=== PATIENT | male | born 1935 | race Caucasian/White ===

== ENCOUNTER 2019-02-07 13:30 | Outpatient (CLI) | payer MEDICARE, OTHER ==
--- NOTE | 2019-02-07 16:45 | BD ---
BONE DENSITOMETRY USING DEXA: Date: 02/07/19 HISTORY: Osteoporosis. FINDINGS: Lumbar Spine: BMD (g/cm2) L1 0.711 T-Score: -3.3 L2 0.796 T-Score: -3.5 L3 0.827 T-Score: -2.5 L4 0.845 T-Score: -2.2 L1-L4 0.775 T-Score: -2.9 Femoral Neck: 0.608 T-Score: -2.4 Total Femur: 0.676 T-Score: -2.4 IMPRESSION: Osteoporosis. POS: OFF
== END 2019-02-07 13:31 | disposition home or self-care (01) ==
LOC: BICMAMMO 13:30
PROVIDERS: ATTEND Specialist
DX: M81.0 Age-related osteoporosis without current pathological fracture (principal)
CPT/HCPCS: 77080

== ENCOUNTER 2022-02-25 10:24 | Inpatient (IN) | payer MEDICARE, OTHER ==
[2022-02-25] MEDS ORDERED: Fentanyl 100 MCG/2 ML VIAL ONE (11:47)
[2022-02-25 12:19] LABS: Hemoglobin 13.2 g/dL (14.0-18.0); Mean Corpuscular Hemoglobin 32.9 pg (27.0-31.0); Mean Corpuscular Volume 99.8 fL (78.0-98.0); Mean Platelet Volume 7.6 fL (7.4-10.4); Platelet Count 169 thou/uL (130-400); RBC Distribution Width 13.5 % (11.5-14.5); Red Blood Cell (RBC) Count 4.01 mill/uL (4.70-6.10); White Blood Cell (WBC) Count 18.3 thou/uL (4.8-10.8)
[2022-02-25 12:32] LABS: PTT 25.1 sec (22.9-36.1); Prothrombin Time 13.7 sec (12.0-14.7)
[2022-02-25 12:38] LABS: ALT (SGPT) 10 U/L (8-55); AST (SGOT) 16 U/L (5-34); Albumin 3.5 g/dL (3.4-4.8); Alkaline Phosphatase 82 U/L (40-110); Anion Gap 13 mmol/L (10-20); BUN (Urea Nitrogen) 9 mg/dL (8.4-25.7); Band 9 % (5-11); Bilirubin, Total 1.1 mg/dL (0.2-1.2); Calc. Creatinine Clearance 0 mL/min (70-130); Calcium 8.8 mg/dL (7.8-10.44); Carbon Dioxide 23 mmol/L (23-31); Chloride 106 mmol/L (98-107); Globulin 2.2 g/dL (2.4-3.5); Glucose 174 mg/dL (83-110); Hypochromia SLIGHT = 6-15 cells (100X) (0-5/hpf); Lymphocytes 31 % (21-51); MDiff Complete? YES; Neutrophil 53 % (42-75); Platelet Morphology Comment Appears Adequate; Potassium 3.8 mmol/L (3.5-5.1); Protein, Total 5.7 g/dL (5.8-8.1); Reactive Lymphocytes 7 % (0-10); Sodium 138 mmol/L (136-145)
[2022-02-25] MEDS ORDERED: Ondansetron ODT 4 MG TAB PO PRN (13:37)
[2022-02-25] MEDS ORDERED: HYDROcodone/Acetaminophen 10/325 mg Tablet PO PRN (13:37)
[2022-02-25] MEDS ORDERED: traMADol HCl 50 MG TAB PO PRN ×2 (13:37)
[2022-02-25] MEDS ORDERED: hydrALAZINE 20 MG/ML VIAL SLOW IVP PRN (13:37)
[2022-02-25 16:19] VITALS: BMI 23.3
[2022-02-25] MEDS: Atorvastatin Calcium 40 MG TAB PO SCH (20:24)
[2022-02-25] MEDS: Famotidine/PF 20 mg/2ml Vial SLOW IVP SCH (20:25)
[2022-02-25] MEDS ORDERED: Mirtazapine 15 MG TAB PO SCH (21:00)
[2022-02-25] MEDS: Latanoprost 0.005% Ophth Soln 2.5 ml Bottle EA EYE SCH (21:16)
[2022-02-26 06:00] LABS: SARS-CoV-2 NAA Rapid Test Not Detected (NotDetected)
[2022-02-26 06:18] LABS: INR-International Normal Ratio 1.1; PTT 28.9 sec (22.9-36.1); Prothrombin Time 14.2 sec (12.0-14.7)
[2022-02-26 06:19] LABS: Hemoglobin 11.8 g/dL (14.0-18.0); Mean Corpuscular HGB CONC 33.7 g/dL (32.0-36.0); Mean Corpuscular Hemoglobin 33.1 pg (27.0-31.0); Mean Corpuscular Volume 98.1 fL (78.0-98.0); Mean Platelet Volume 7.5 fL (7.4-10.4); Platelet Count 160 thou/uL (130-400); RBC Distribution Width 13.4 % (11.5-14.5); Red Blood Cell (RBC) Count 3.57 mill/uL (4.70-6.10); White Blood Cell (WBC) Count 16.3 thou/uL (4.8-10.8)
[2022-02-26 06:23] LABS: Anion Gap 14 mmol/L (10-20); BUN (Urea Nitrogen) 9 mg/dL (8.4-25.7); Calc. Creatinine Clearance 47 mL/min (70-130); Carbon Dioxide 22 mmol/L (23-31); Chloride 106 mmol/L (98-107); Potassium 3.9 mmol/L (3.5-5.1); Sodium 138 mmol/L (136-145)
[2022-02-26 06:24] LABS: Glucose 169 mg/dL (83-110); Magnesium 1.9 mg/dL (1.6-2.6)
[2022-02-26 06:36] LABS: Band 4 % (5-11); Lymphocytes 34 % (21-51); MDiff Complete? YES; Monocytes 6 % (0-10); Neutrophil 54 % (42-75); Reactive Lymphocytes 2 % (0-10); Schistocytes SLIGHT = 2-5 cells (100X) (0-1/hpf)
[2022-02-26] MEDS ORDERED: fentaNYL Citrate/PF 100 MCG/2 ML SYRINGE ONE (07:10)
[2022-02-26] MEDS ORDERED: Dexmedetomidine 200 MCG/2 ML VIAL ONE (07:10)
[2022-02-26] MEDS: Metoprolol Tartrate 25 MG TAB PO SCH (07:22)
[2022-02-26] MEDS ORDERED: ceFAZolin (BATCH) 2 GM/100 ML BAG ONE (08:05)
[2022-02-26] MEDS ORDERED: Lidocaine 1% PF 5 ML VIAL ONE (08:28)
[2022-02-26] MEDS ORDERED: Ondansetron PF 4 MG/2 ML Vial ONE (08:28)
[2022-02-26] MEDS ORDERED: PROPOFOL 200 MG/20 ML VIAL ONE (08:28)
[2022-02-26] MEDS ORDERED: ePHEDrine 50 MG/ML VIAL ONE (08:28)
[2022-02-26] MEDS ORDERED: PHENYLEPHRINE-NS 100 MCG/ML 10 ML SYRINGE ONE (08:28)
[2022-02-26] MEDS ORDERED: Furosemide 20 MG TAB PO SCH (09:00)
[2022-02-26] MEDS ORDERED: Dutasteride 0.5 MG CAP PO SCH (09:00)
[2022-02-26] MEDS ORDERED: Promethazine HCl 25 MG/ML VIAL IVPB PRN (09:24)
[2022-02-26] MEDS ORDERED: Promethazine HCl 25 MG/ML VIAL IM PRN (09:24)
[2022-02-26] MEDS ORDERED: Ondansetron HCl/PF 4 MG/2 ML Vial IVP PRN (09:24)
[2022-02-26] MEDS ORDERED: Morphine 4 MG/ML VIAL SLOW IVP PRN (09:46)
[2022-02-26] MEDS ORDERED: Morphine 2 MG/ML VIAL SLOW IVP PRN ×2 (09:46→19:13)
[2022-02-26] MEDS ORDERED: Ondansetron PF 4 MG/2 ML Vial IVP PRN (09:46)
[2022-02-26] MEDS ORDERED: HYDROcodone/Acetaminophen 5/325 mg Tablet PO PRN ×2 (09:46)
[2022-02-26] MEDS ORDERED: PHARMACY TO RENALLY ADJUST ABX FS SCH (10:00)
[2022-02-26] MEDS ORDERED: TETANUS AND DIPHTHERIA TOX/PF 0.5 ML DISP.SYRIN IM SCH (10:00)
[2022-02-26] MEDS: Ferrous Sulfate 325 MG TAB PO SCH (14:47)
[2022-02-26] MEDS: Famotidine/PF 20 mg/2ml Vial SLOW IVP SCH ×2 (14:47→20:33)
[2022-02-26] MEDS: Tamsulosin HCl 0.4 MG CAP PO SCH (14:49)
[2022-02-26] MEDS: Oxybutynin 5 MG TAB PO SCH (14:49)
[2022-02-26] MEDS: ceFAZolin (BATCH) 2 GM in Premix Bag 1 BAG IVPB SCH ×2 (15:12→23:22)
[2022-02-26] MEDS ORDERED: Dextrose 5% in Water 1,000 ML IV PRN (19:14)
[2022-02-26] MEDS ORDERED: Dextrose 50% Abboject 50 ML SYRINGE SLOW IVP PRN (19:14)
[2022-02-26] MEDS ORDERED: Insulin Regular 300 UNITS/3 ML VIAL SC PRN (19:14)
[2022-02-26] MEDS: Aspirin 81 mg Enteric Coated Tablet PO SCH (20:32)
[2022-02-26] MEDS: Atorvastatin Calcium 40 MG TAB PO SCH (20:32)
[2022-02-26] MEDS: Latanoprost 0.005% Ophth Soln 2.5 ml Bottle EA EYE SCH (20:33)
[2022-02-26] MEDS: Acetaminophen 500 MG TAB PO SCH (23:22)
[2022-02-27] MEDS: Acetaminophen 500 MG TAB PO SCH ×4 (05:46→23:32)
[2022-02-27] MEDS: Insulin Regular 300 UNITS/3 ML VIAL SC PRN ×3 (05:47→18:52)
[2022-02-27 06:39] LABS: Anion Gap 12 mmol/L (10-20); BUN (Urea Nitrogen) 15 mg/dL (8.4-25.7); Calc. Creatinine Clearance 36 mL/min (70-130); Calcium 8.3 mg/dL (7.8-10.44); Carbon Dioxide 22 mmol/L (23-31); Chloride 108 mmol/L (98-107); Glucose 211 mg/dL (83-110); Magnesium 1.9 mg/dL (1.6-2.6); Phosphorus 3.1 mg/dL (2.3-4.7); Potassium 4.1 mmol/L (3.5-5.1); Sodium 138 mmol/L (136-145)
[2022-02-27 06:40] LABS: #Basophils 0.1 thou/uL (0.0-0.2); #Eosinphils 0.1 thou/uL (0.0-0.7); #Lymphocytes 5.6 thou/uL (1.20-3.40); #Monocytes 1.1 thou/uL (0.11-0.59); #Neutrophils 7.3 thou/uL (1.40-6.50); %Basophils 0.5 % (0.0-1.0); %Eosinophils 0.9 % (0.0-10.0); %Lymphocytes 39.6 % (21.0-51.0); %Monocytes 7.7 % (0.0-10.0); %Neutrophils 51.3 % (42.0-75.0); Hemoglobin 9.9 g/dL (14.0-18.0); Mean Corpuscular HGB CONC 34.5 g/dL (32.0-36.0); Mean Corpuscular Hemoglobin 34.5 pg (27.0-31.0); Mean Platelet Volume 8.2 fL (7.4-10.4); Platelet Count 131 thou/uL (130-400); RBC Distribution Width 13.5 % (11.5-14.5); Red Blood Cell (RBC) Count 2.88 mill/uL (4.70-6.10); White Blood Cell (WBC) Count 14.2 thou/uL (4.8-10.8)
[2022-02-27] MEDS ORDERED: traMADol HCl 50 MG TAB PO PRN (07:12)
[2022-02-27] MEDS ORDERED: Cyclobenzaprine 10 MG TAB PO PRN (07:13)
[2022-02-27] MEDS ORDERED: Sodium Chloride 0.9% 1,000 ML IV SCH (07:15)
[2022-02-27] MEDS: ceFAZolin (BATCH) 2 GM in Premix Bag 1 BAG IVPB SCH ×2 (08:36→17:49)
[2022-02-27] MEDS ORDERED: Enoxaparin Sodium 40 MG/0.4 ML SYRINGE SC SCH (09:00)
[2022-02-27] MEDS ORDERED: Famotidine/PF 20 mg/2ml Vial SLOW IVP SCH (09:00)
[2022-02-27] MEDS: Metoprolol Tartrate 25 MG TAB PO SCH (09:10)
[2022-02-27] MEDS: Aspirin 81 mg Enteric Coated Tablet PO SCH ×2 (09:10→20:23)
[2022-02-27] MEDS: Tamsulosin HCl 0.4 MG CAP PO SCH (09:10)
[2022-02-27] MEDS: Ferrous Sulfate 325 MG TAB PO SCH (09:10)
[2022-02-27] MEDS: Oxybutynin 5 MG TAB PO SCH (09:10)
[2022-02-27] MEDS ORDERED: traMADol HCl 50 MG TAB PO SCH (12:00)
[2022-02-27] MEDS ORDERED: Ibuprofen 200 MG TAB PO SCH (14:00)
[2022-02-27] MEDS: traMADol HCl 50 MG TAB PO SCH ×2 (17:41→20:23)
[2022-02-27] MEDS ORDERED: Digoxin 0.25 MG TAB PO SCH (20:15)
[2022-02-27] MEDS: Atorvastatin Calcium 10 MG TAB PO SCH (20:23)
[2022-02-27] MEDS: Latanoprost 0.005% Ophth Soln 2.5 ml Bottle EA EYE SCH (20:23)
[2022-02-27 20:44] LABS: Hemoglobin 9.2 g/dL (14.0-18.0); Mean Corpuscular HGB CONC 33.3 g/dL (32.0-36.0); Mean Corpuscular Hemoglobin 33.1 pg (27.0-31.0); Mean Corpuscular Volume 99.5 fL (78.0-98.0); Mean Platelet Volume 7.8 fL (7.4-10.4); Platelet Count 126 thou/uL (130-400); RBC Distribution Width 13.6 % (11.5-14.5); Red Blood Cell (RBC) Count 2.78 mill/uL (4.70-6.10); White Blood Cell (WBC) Count 11.8 thou/uL (4.8-10.8)
[2022-02-27] MEDS ORDERED: Digoxin 0.5 MG/2 ML AMP SLOW IVP SCH ×2 (20:45→21:00)
[2022-02-27 21:01] LABS: #Eosinphils 0.2 thou/uL (0.0-0.7); #Lymphocytes 4.1 thou/uL (1.20-3.40); #Monocytes 0.7 thou/uL (0.11-0.59); #Neutrophils 6.8 thou/uL (1.40-6.50); %Basophils 0.2 % (0.0-1.0); %Eosinophils 1.7 % (0.0-10.0); %Lymphocytes 34.5 % (21.0-51.0); %Monocytes 5.9 % (0.0-10.0); %Neutrophils 57.8 % (42.0-75.0); MDiff Complete? YES
[2022-02-27 21:02] LABS: Anion Gap 12 mmol/L (10-20); BUN (Urea Nitrogen) 18 mg/dL (8.4-25.7); Calc. Creatinine Clearance 39 mL/min (70-130); Calcium 8.2 mg/dL (7.8-10.44); Carbon Dioxide 21 mmol/L (23-31); Chloride 110 mmol/L (98-107); Glucose 186 mg/dL (83-110); Magnesium 1.9 mg/dL (1.6-2.6); Phosphorus 2.5 mg/dL (2.3-4.7); Sodium 139 mmol/L (136-145)
[2022-02-27] MEDS ORDERED: Hydrocortisone Sod Succ/PF 100 mg/2 ml Vial IVP SCH (22:15)
[2022-02-28] MEDS: Hydrocortisone Sod Succ/PF 100 mg/2 ml Vial IVP SCH ×3 (01:55→18:04)
[2022-02-28] MEDS ORDERED: Digoxin 0.5 MG/2 ML AMP SLOW IVP SCH ×3 (03:00→09:00)
[2022-02-28 04:19] LABS: #Lymphocytes 4.5 thou/uL (1.20-3.40); #Monocytes 0.3 thou/uL (0.11-0.59); #Neutrophils 7.1 thou/uL (1.40-6.50); %Eosinophils 0.2 % (0.0-10.0); %Lymphocytes 37.9 % (21.0-51.0); %Monocytes 2.7 % (0.0-10.0); %Neutrophils 59.2 % (42.0-75.0); Hemoglobin 8.4 g/dL (14.0-18.0); Mean Corpuscular HGB CONC 32.7 g/dL (32.0-36.0); Mean Platelet Volume 7.9 fL (7.4-10.4); Platelet Count 112 thou/uL (130-400); RBC Distribution Width 13.4 % (11.5-14.5); Red Blood Cell (RBC) Count 2.56 mill/uL (4.70-6.10); White Blood Cell (WBC) Count 11.9 thou/uL (4.8-10.8)
[2022-02-28 04:29] LABS: Anion Gap 12 mmol/L (10-20); BUN (Urea Nitrogen) 20 mg/dL (8.4-25.7); Calc. Creatinine Clearance 39 mL/min (70-130); Calcium 8.4 mg/dL (7.8-10.44); Carbon Dioxide 22 mmol/L (23-31); Chloride 110 mmol/L (98-107); Glucose 196 mg/dL (83-110); Magnesium 2.1 mg/dL (1.6-2.6); Phosphorus 2.9 mg/dL (2.3-4.7); Potassium 4.9 mmol/L (3.5-5.1); Sodium 139 mmol/L (136-145)
[2022-02-28] MEDS: traMADol HCl 50 MG TAB PO SCH ×3 (05:58→22:17)
[2022-02-28] MEDS: Insulin Regular 300 UNITS/3 ML VIAL SC PRN (06:00)
[2022-02-28] MEDS: Acetaminophen 500 MG TAB PO SCH ×3 (06:00→18:03)
[2022-02-28] MEDS: Aspirin 81 mg Enteric Coated Tablet PO SCH ×2 (09:46→20:38)
[2022-02-28] MEDS: Tamsulosin HCl 0.4 MG CAP PO SCH (09:46)
[2022-02-28] MEDS: Alogliptin 6.25 MG TAB PO SCH (09:46)
[2022-02-28] MEDS: Docusate Sodium 100 MG/10 ML UDCUP PO SCH (09:46)
[2022-02-28] MEDS: Oxybutynin 5 MG TAB PO SCH (09:47)
[2022-02-28] MEDS: Ferrous Sulfate 325 MG TAB PO SCH (09:47)
[2022-02-28] MEDS: Empagliflozin 25 MG TAB PO SCH (09:47)
[2022-02-28] MEDS: Latanoprost 0.005% Ophth Soln 2.5 ml Bottle EA EYE SCH (20:37)
[2022-02-28] MEDS: Atorvastatin Calcium 10 MG TAB PO SCH (20:38)
[2022-02-28] MEDS ORDERED: Insulin Glargine 30 UNITS/0.3 ML VIAL SC SCH (21:00)
[2022-03-01] MEDS: Acetaminophen 500 MG TAB PO SCH ×2 (01:07→05:22)
[2022-03-01] MEDS: traMADol HCl 50 MG TAB PO SCH (05:21)
[2022-03-01 05:33] LABS: Hemoglobin 7.8 g/dL (14.0-18.0); Mean Corpuscular HGB CONC 32.2 g/dL (32.0-36.0); Mean Corpuscular Hemoglobin 32.7 pg (27.0-31.0); Mean Platelet Volume 8.2 fL (7.4-10.4); Platelet Count 138 thou/uL (130-400); RBC Distribution Width 13.4 % (11.5-14.5); Red Blood Cell (RBC) Count 2.39 mill/uL (4.70-6.10); White Blood Cell (WBC) Count 10.2 thou/uL (4.8-10.8)
[2022-03-01 05:34] LABS: Band 9 % (5-11); Lymphocytes 33 % (21-51); MDiff Complete? YES; Monocytes 8 % (0-10); Neutrophil 50 % (42-75)
[2022-03-01] MEDS ORDERED: Ferrous Sulfate 325 MG TAB PO SCH (08:00)
[2022-03-01] MEDS ORDERED: Insulin Glargine 30 UNITS/0.3 ML VIAL SC SCH (09:00)
[2022-03-01] MEDS ORDERED: Ascorbic Acid 500 mg Chewable Tablet PO SCH (09:00)
[2022-03-01] MEDS: Docusate Sodium 100 MG/10 ML UDCUP PO SCH (09:54)
[2022-03-01] MEDS: Alogliptin 6.25 MG TAB PO SCH (09:56)
[2022-03-01] MEDS: Empagliflozin 25 MG TAB PO SCH (09:57)
[2022-03-01] MEDS: Tamsulosin HCl 0.4 MG CAP PO SCH (09:57)
[2022-03-01] MEDS: Oxybutynin 5 MG TAB PO SCH (09:57)
[2022-03-01] MEDS: Aspirin 81 mg Enteric Coated Tablet PO SCH (09:58)
[2022-03-01 10:57] VITALS: BP 147/67
[2022-03-01 10:59] VITALS: TEMP 98.6
== END 2022-03-01 11:16 | DRG 481 ==
LOC: ERS 10:24 → SURG B 12:14 → 2NO 02-27 21:21
PROVIDERS: ADMIT Student in an Organized Health Care Education/Training Program; ATTEND Surgery
PROC: 0QS704Z Reposition Left Upper Femur with Internal Fixation Device, Open Approach (ICD-10-PCS; principal; 2022-02-26)
DX: S72.142A Displaced intertrochanteric fracture of left femur, initial encounter for closed fracture (principal); N17.9 Acute kidney failure, unspecified; Z20.822 Contact with and (suspected) exposure to COVID-19; G30.9 Alzheimer's disease, unspecified; F02.80 Dementia in other diseases classified elsewhere, unspecified severity, without behavioral disturbance, psychotic disturbance, mood disturbance, and anxiety; E78.5 Hyperlipidemia, unspecified; E78.00 Pure hypercholesterolemia, unspecified; I10 Essential (primary) hypertension; W18.30XA Fall on same level, unspecified, initial encounter; I25.10 Atherosclerotic heart disease of native coronary artery without angina pectoris; I48.91 Unspecified atrial fibrillation; Z95.1 Presence of aortocoronary bypass graft; Z98.890 Other specified postprocedural states; Z79.899 Other long term (current) drug therapy
CPT/HCPCS: 36415; 36416; 70450; 71045; 72100; 72125; 72131; 72170; 76000; 80048; 80053; 82533; 83735; 83880; 84100; 85025; 85610; 85730; 86850; 86900; 86901; 93005; 93010; 93306; 96374; C1713; J0690; J1160; J1720; J1815; J2405; J2704; J3010; J3490; J7050; P9045; S0028; U0002; U0003; U0005

== ENCOUNTER 2022-03-06 21:42 | Inpatient (IN) | payer MEDICARE, OTHER ==
[~2022-03-06 21:42] MED LIST: Iopamidol 370 76% 100 ML VIAL ONE
[2022-03-06] MEDS ORDERED: Ketamine 50 MG/ML (10ML VIAL) ONE (21:49)
[2022-03-06] MEDS ORDERED: Rocuronium Bromide 10 MG/ML (10ML VIAL) ONE (21:52)
[2022-03-06 22:16] LABS: Actual Bicarbonate (HCO3a) 16.2 mEq/L (22-28); Analyzer IN Cardio ER; Base Excess (BEa) -9.5 mEq/L (-2.0 to +3.0); CO2 Tension 34.1 mmHg (35.0-45.0); Calcium, Ionized (arterial) 1.17 mmol/L (1.12-1.30); Carboxyhemoglobin (COHb) 0.3 gm% (0.0-3.0); Hemoglobin (Hb) 7.5 g/dL (14.0-18.0); pH, Arterial 7.29 (7.35-7.45)
[2022-03-06 22:20] LABS: Puncture Site RRA
[2022-03-06 22:29] LABS: Hemoglobin 10.8 g/dL (14.0-18.0); Mean Corpuscular HGB CONC 32.4 g/dL (32.0-36.0); Mean Corpuscular Hemoglobin 32.9 pg (27.0-31.0); Mean Platelet Volume 7.2 fL (7.4-10.4); Platelet Count 371 thou/uL (130-400); RBC Distribution Width 15.3 % (11.5-14.5); Red Blood Cell (RBC) Count 3.27 mill/uL (4.70-6.10); White Blood Cell (WBC) Count 58.7 thou/uL (4.8-10.8)
[2022-03-06 22:32] LABS: ALT (SGPT) 40 U/L (8-55); AST (SGOT) 39 U/L (5-34); Albumin 3.5 g/dL (3.4-4.8); Alkaline Phosphatase 100 U/L (40-110); Anion Gap 20 mmol/L (10-20); BUN (Urea Nitrogen) 35 mg/dL (8.4-25.7); Bilirubin, Total 2.4 mg/dL (0.2-1.2); Calc. Creatinine Clearance 0 mL/min (70-130); Carbon Dioxide 18 mmol/L (23-31); Chloride 116 mmol/L (98-107); Globulin 2.3 g/dL (2.4-3.5); Glucose 187 mg/dL (83-110); Potassium 3.3 mmol/L (3.5-5.1); Protein, Total 5.8 g/dL (5.8-8.1); Sodium 151 mmol/L (136-145)
[2022-03-06 22:37] LABS: Band 10 % (5-11); Eosinophils 1 % (0-10); Lymphocytes 59 % (21-51); MDiff Complete? YES; Macrocytosis MODERATE=16-30 cells (100X) (0-5/hpf); Monocytes 8 % (0-10); Neutrophil 22 % (42-75); Ovalocytes SLIGHT = 2-5 cells (100X) (0-1/hpf); Platelet Morphology Comment Appears Adequate
[2022-03-06 22:54] LABS: CKMB 1.6 ng/mL (0-6.6)
[2022-03-06] MEDS ORDERED: Azithromycin 500 MG VIAL ONE (22:57)
[2022-03-06] MEDS ORDERED: cefTRIAXone\\ROCEPHIN 1 GM VIAL ONE (22:57)
[2022-03-06 23:30] LABS: INR-International Normal Ratio 1.2; Prothrombin Time 15.2 sec (12.0-14.7)
[2022-03-06 23:44] LABS: PTT 22.6 sec (22.9-36.1)
[2022-03-07 00:24] LABS: SARS-CoV-2 NAA Rapid Test Not Detected (NotDetected)
[2022-03-07] MEDS ORDERED: DISCONTINUE PREVIOUS NARCOTIC PAIN MEDICATIONS AND BENZODIAZEPINES FS SCH (01:45)
[2022-03-07] MEDS ORDERED: Propofol 1,000 MG/100 ML VIAL IV PRN (01:45)
[2022-03-07] MEDS ORDERED: Fentanyl BOLUS 250 ML IVPB PRN (01:45)
[2022-03-07] MEDS ORDERED: Lorazepam 2 MG/ML VIAL SLOW IVP PRN (01:45)
[2022-03-07] MEDS ORDERED: Morphine 2 MG/ML VIAL SLOW IVP PRN (01:45)
[2022-03-07] MEDS ORDERED: fentaNYL Citrate/PF 2,000 MCG in Sodium Chloride 0.9% 60 ML IV SCH (01:45)
[2022-03-07] MEDS ORDERED: Propofol BOLUS 1,000 MG/100 ML VIAL IV PRN (01:45)
[2022-03-07] MEDS ORDERED: Electrolyte Replacement Protocol FS PRN (02:00)
[2022-03-07] MEDS ORDERED: Dextrose 5% in Water 1,000 ML IV PRN (02:00)
[2022-03-07] MEDS ORDERED: Dextrose 50% Abboject 50 ML SYRINGE IVP PRN (02:00)
[2022-03-07] MEDS ORDERED: Diltiazem HCl 125 MG, Admixture Fee 1 EACH in Sodium Chloride 0.9% 100 ML IVPB SCH (02:00)
[2022-03-07] MEDS ORDERED: fentaNYL Citrate-0.9 % NaCl/PF 100 ML IVPB SCH (02:00)
[2022-03-07] MEDS: Potassium Chloride 20 MEQ in Premix Bag 1 BAG IVPB SCH ×4 (02:30→08:57)
[2022-03-07 04:03] LABS: Anion Gap 17 mmol/L (10-20); BUN (Urea Nitrogen) 28 mg/dL (8.4-25.7); Calc. Creatinine Clearance 52 mL/min (70-130); Calcium 7.9 mg/dL (7.8-10.44); Carbon Dioxide 15 mmol/L (23-31); Chloride 123 mmol/L (98-107); Glucose 168 mg/dL (83-110); Potassium 3.5 mmol/L (3.5-5.1); Sodium 151 mmol/L (136-145)
[2022-03-07 04:09] LABS: Hemoglobin 8.5 g/dL (14.0-18.0); Mean Corpuscular HGB CONC 32.2 g/dL (32.0-36.0); Mean Corpuscular Hemoglobin 33.3 pg (27.0-31.0); Platelet Count 287 thou/uL (130-400); RBC Distribution Width 15.2 % (11.5-14.5); Red Blood Cell (RBC) Count 2.54 mill/uL (4.70-6.10); White Blood Cell (WBC) Count 39.8 thou/uL (4.8-10.8)
[2022-03-07 04:10] LABS: Anisocytosis SLIGHT = 6-15 cells (100X) (0-5/hpf); Band 5 % (5-11); Elliptocytes SLIGHT = 2-5 cells (100X) (0-1/hpf); Lymphocytes 68 % (21-51); MDiff Complete? YES; Macrocytosis MODERATE=16-30 cells (100X) (0-5/hpf); Monocytes 6 % (0-10); Neutrophil 21 % (42-75); Platelet Morphology Comment Appears Adequate
[2022-03-07] MEDS: Insulin Regular 300 UNITS/3 ML VIAL SC PRN ×3 (05:35→15:40)
[2022-03-07 05:41] LABS: Bilirubin Negative (Negative); Blood, Urine Negative (Negative); Clarity Clear (Clear); Glucose, Urine (Dipstick) Greater than 1000 mg/dL (Negative); Ketone, Urine 60 mg/dL (Negative); Leukocyte Negative Leu/uL (Negative); Nitrite Negative (Negative); Protein, Urine (Dipstick) 30 mg/dL (Neg-Trace); RBC/HPF 0-3 HPF (0-3); Specific Gravity, Urine 1.049 (1.002-1.036); Squamous Epithelial 0-3 HPF (0-3); Urobilinogen Normal mg/dL (Less than 2); WBC/HPF 0-3 HPF (0-3)
[2022-03-07 05:55] LABS: Bacteria/HPF Rare-Few HPF (None Seen)
[2022-03-07 08:01] LABS: Actual Bicarbonate (HCO3a) 16.4 mEq/L (22-28); Base Excess (BEa) -6.8 mEq/L (-2.0 to +3.0); Calcium, Ionized (arterial) 1.23 mmol/L (1.12-1.30); Hemoglobin (Hb) 9.5 g/dL (14.0-18.0); O2 Tension (PaO2), arterial 66.8 mmHg (> 60.0); Potassium - ABG Lab 3.52 mmol/L (3.70-5.30); pH, Arterial 7.43 (7.35-7.45)
[2022-03-07 08:12] LABS: CO2 Tension 25.4 mmHg (35.0-45.0); Puncture Site RRA
[2022-03-07] MEDS: Aspirin 300 MG Suppository PR SCH (08:57)
[2022-03-07] MEDS: Pantoprazole 40 MG VIAL IVP SCH (08:57)
[2022-03-07] MEDS ORDERED: Fentanyl 100 MCG/2 ML VIAL ONE (11:18)
[2022-03-07] MEDS ORDERED: PROPOFOL 20 ML ONE (11:19)
[2022-03-07] MEDS ORDERED: Xylocaine 1% w/ Epi 1:100K 10 ML VIAL ONE (11:19)
[2022-03-07] MEDS ORDERED: Enoxaparin Sodium 80 MG/0.8 ML SYRINGE SC SCH (11:30)
[2022-03-07] MEDS ORDERED: PROPOFOL 200 MG/20 ML VIAL IV SCH (12:30)
[2022-03-07] MEDS ORDERED: Lidocaine 1%/Epinephrine 1:100K 10 ML VIAL FS SCH (12:30)
[2022-03-07] MEDS ORDERED: Fentanyl 100 MCG/2 ML VIAL SLOW IVP SCH (12:30)
[2022-03-07] MEDS ORDERED: Lidocaine 1% w/Epinephrine 1:100K 20 ML VIAL FS SCH (12:30)
[2022-03-07] MEDS: Latanoprost 0.005% Ophth Soln 2.5 ml Bottle EA EYE SCH (21:08)
[2022-03-07] MEDS: Enoxaparin Sodium 80 MG/0.8 ML SYRINGE SC SCH (21:08)
[2022-03-07] MEDS: cefTRIAXone\\ROCEPHIN 1 GM in Sodium Chloride 0.9% 100 ML IVPB SCH (23:10)
[2022-03-07] MEDS: Azithromycin 500 MG in Sodium Chloride 0.9% 250 ML 250 ML IVPB SCH (23:10)
[2022-03-08 04:25] LABS: Anion Gap 8 mmol/L (10-20); BUN (Urea Nitrogen) 25 mg/dL (8.4-25.7); Calc. Creatinine Clearance 53 mL/min (70-130); Calcium 8.1 mg/dL (7.8-10.44); Carbon Dioxide 22 mmol/L (23-31); Glucose 181 mg/dL (83-110); Potassium 3.7 mmol/L (3.5-5.1); Sodium 153 mmol/L (136-145)
[2022-03-08 04:27] LABS: Band 16 % (5-11); Hemoglobin 7.6 g/dL (14.0-18.0); Hypochromia SLIGHT = 6-15 cells (100X) (0-5/hpf); Lymphocytes 43 % (21-51); MDiff Complete? YES; Mean Corpuscular HGB CONC 31.6 g/dL (32.0-36.0); Mean Corpuscular Hemoglobin 32.6 pg (27.0-31.0); Mean Platelet Volume 7.1 fL (7.4-10.4); Neutrophil 41 % (42-75); Platelet Count 262 thou/uL (130-400); Platelet Morphology Comment Appears Adequate; RBC Distribution Width 15.1 % (11.5-14.5); Red Blood Cell (RBC) Count 2.32 mill/uL (4.70-6.10); White Blood Cell (WBC) Count 31.4 thou/uL (4.8-10.8)
[2022-03-08 04:38] LABS: Chloride 127 mmol/L (98-107)
[2022-03-08] MEDS: Insulin Regular 300 UNITS/3 ML VIAL SC PRN ×2 (06:20→16:15)
[2022-03-08] MEDS: Enoxaparin Sodium 80 MG/0.8 ML SYRINGE SC SCH ×2 (08:36→20:38)
[2022-03-08] MEDS: Aspirin 300 MG Suppository PR SCH (08:36)
[2022-03-08] MEDS: Pantoprazole 40 MG VIAL IVP SCH (08:36)
[2022-03-08] MEDS ORDERED: Dextrose 5% in Water 500 ML IV SCH (09:45)
[2022-03-08] MEDS ORDERED: Dexamethasone 10 MG/ML VIAL SLOW IVP SCH (10:15)
[2022-03-08] MEDS: Latanoprost 0.005% Ophth Soln 2.5 ml Bottle EA EYE SCH (20:37)
[2022-03-08] MEDS: cefTRIAXone\\ROCEPHIN 1 GM in Sodium Chloride 0.9% 100 ML IVPB SCH (22:18)
[2022-03-09] MEDS: Azithromycin 500 MG in Sodium Chloride 0.9% 250 ML 250 ML IVPB SCH (01:18)
[2022-03-09] MEDS ORDERED: Dextrose 5% in Water 500 ML IV SCH ×2 (08:15→08:30)
[2022-03-09] MEDS: Pantoprazole 40 MG VIAL IVP SCH (08:27)
[2022-03-09] MEDS: Enoxaparin Sodium 80 MG/0.8 ML SYRINGE SC SCH (08:27)
[2022-03-09] MEDS ORDERED: Aspirin 81 mg Enteric Coated Tablet PER TUBE SCH (09:00)
[2022-03-09 10:28] VITALS: BMI 23.9
[2022-03-09 11:49] VITALS: BP 148/94
[2022-03-09 12:19] VITALS: TEMP 98
== END 2022-03-09 13:50 | disposition hospice, home (50) | DRG 871 ==
LOC: ERS 21:42 → CCU 23:03
PROVIDERS: ADMIT Specialist; ATTEND Specialist
PROC: 5A09357 Assistance with Respiratory Ventilation, Less than 24 Consecutive Hours, Continuous Positive Airway Pressure (ICD-10-PCS; principal; 2022-03-06)
PROC: 0BH17EZ Insertion of Endotracheal Airway into Trachea, Via Natural or Artificial Opening (ICD-10-PCS; 2022-03-06)
PROC: 5A1945Z Respiratory Ventilation, 24-96 Consecutive Hours (ICD-10-PCS; 2022-03-06)
PROC: 0D9770Z Drainage of Stomach, Pylorus with Drainage Device, Via Natural or Artificial Opening (ICD-10-PCS; 2022-03-06)
PROC: 02HV33Z Insertion of Infusion Device into Superior Vena Cava, Percutaneous Approach (ICD-10-PCS; 2022-03-06)
PROC: 3E04329 Introduction of Other Anti-infective into Central Vein, Percutaneous Approach (ICD-10-PCS; 2022-03-06)
PROC: 0BC38ZZ Extirpation of Matter from Right Main Bronchus, Via Natural or Artificial Opening Endoscopic (ICD-10-PCS; 2022-03-07)
PROC: 0BC58ZZ Extirpation of Matter from Right Middle Lobe Bronchus, Via Natural or Artificial Opening Endoscopic (ICD-10-PCS; 2022-03-07)
DX: A41.9 Sepsis, unspecified organism (principal); J18.9 Pneumonia, unspecified organism; J96.01 Acute respiratory failure with hypoxia; I26.99 Other pulmonary embolism without acute cor pulmonale; J98.11 Atelectasis; J90 Pleural effusion, not elsewhere classified; E87.0 Hyperosmolality and hypernatremia; Z66 Do not resuscitate; Z20.822 Contact with and (suspected) exposure to COVID-19; Z51.5 Encounter for palliative care; I48.91 Unspecified atrial fibrillation; K21.9 Gastro-esophageal reflux disease without esophagitis; N40.0 Benign prostatic hyperplasia without lower urinary tract symptoms; E11.9 Type 2 diabetes mellitus without complications; R29.6 Repeated falls; E86.0 Dehydration; G30.9 Alzheimer's disease, unspecified; K80.80 Other cholelithiasis without obstruction; F02.80 Dementia in other diseases classified elsewhere, unspecified severity, without behavioral disturbance, psychotic disturbance, mood disturbance, and anxiety; T17.990A Other foreign object in respiratory tract, part unspecified in causing asphyxiation, initial encounter; E78.5 Hyperlipidemia, unspecified; I50.9 Heart failure, unspecified; I11.0 Hypertensive heart disease with heart failure; E87.8 Other disorders of electrolyte and fluid balance, not elsewhere classified; Z95.1 Presence of aortocoronary bypass graft; Z87.820 Personal history of traumatic brain injury; Z78.1 Physical restraint status
CPT/HCPCS: 31500; 31624; 36415; 36416; 36556; 36600; 51702; 71045; 71275; 80048; 80053; 81001; 82553; 82607; 82746; 82805; 83605; 83880; 84484; 85025; 85610; 85730; 87040; 87070; 87086; 87205; 93005; 94002; 94003; 94760; 96365; 96366; 96367; 99292; C9113; J0456; J0696; J1100; J1650; J1815; J2704; J3010; J3480; J3490; J7050; J7070; Q9967